=== PATIENT | male | born 1980 ===

== ENCOUNTER 2021-05-27 10:46 | Emergency (ER) | payer MEDICAID, OTHER ==
[~2021-05-27] VITALS: Ht 175.3 cm; Wt 68.0 kg
[2021-05-27] MEDS ORDERED: SODIUM CHLORIDE 0.9% 1,000 ML IV ONE (11:30)
[2021-05-27] MEDS ORDERED: SODIUM CHLORIDE 0.9% 500 ML IVB ONE (11:30)
[2021-05-27] MEDS ORDERED: LORazepam 2MG/ML-1ML VIAL IV ONE (11:30)
[2021-05-27] MEDS ORDERED: LORazepam 2MG/ML-1ML VIAL ONE (11:49)
[2021-05-27] MEDS ORDERED: HALOPERIDOL LACTATE 5 MG/ML INJ VIAL ONE ×2 (11:53)
[2021-05-27 13:09] LABS: Basophils # (auto) 0 10 ^3/uL (0-0.2); Basophils % (auto) 0.4 % (0.0-2.0); Eosinophils # (auto) 0 10 ^3/uL (0-0.8); Eosinophils % (auto) 0.2 % (0.0-7.0); Hematocrit 49.5 % (41.0-53.0); Hemoglobin 16.8 g/dL (13.5-17.5); Lymphocytes # (auto) 0.8 10 ^3/uL (0.4-5.4); Lymphocytes % (auto) 8.7 % (10.0-50.0); Mean Corpuscular Hemoglobin 30.9 pg (28.0-32.0); Mean Corpuscular Hgb Conc. 33.9 g/dL (32.0-36.0); Monocytes # (auto) 0.4 10 ^3/uL (0-1.3); Monocytes % (auto) 3.8 % (0.0-12.0); Neutrophils # (auto) 8.4 10 ^3/uL (1.6-8.6); Neutrophils % (auto) 86.9 % (37.0-80.0); Nucleated Red Blood Cells % 0.1 %; Red Blood Cells 5.44 10^6/uL (4.5-5.90); Red Cell Distribution Width 13.4 % (11.8-14.3); White Blood Cell 9.7 10^3/uL (4.4-10.8)
[2021-05-27 13:26] LABS: Blood Alcohol < 3.0 mg/dL (0-5); Magnesium 2.3 mg/dL (1.6-2.6)
[2021-05-27 13:29] LABS: Albumin 3.5 g/dL (3.4-5.0); BUN/Creatinine Ratio 8.8; Calcium 8.5 mg/dL (8.5-10.1); Potassium 3.5 mmol/L (3.5-5.1)
[2021-05-27 13:32] LABS: Bilirubin, Total 0.5 mg/dL (0.2-1.0); Total Protein 7.2 g/dL (6.4-8.2)
[2021-05-27 16:17] LABS: Urine Bacteria NONE SEEN /hpf (None Seen); Urine Blood Negative /uL (Negative); Urine Hyaline Cast FEW /lpf (0 - 2); Urine Mucus FEW (None Seen); Urine Specific Gravity 1.019 (1.001-1.035); Urine WBC 1 /hpf (0 - 3)
[2021-05-27 16:34] LABS: Amphetamine Screen, Urine NEGATIVE (NEGATIVE); Barbiturate Scree,Urine NEGATIVE (NEGATIVE); Benzodiazephine Screen, Urine POSITIVE (NEGATIVE); Cannabinoid Screen, Urine POSITIVE (NEGATIVE); Cocaine Screen, Urine NEGATIVE (NEGATIVE); Opiate Scree,Urine NEGATIVE (NEGATIVE); Phencyclidine Screen, Urine NEGATIVE (NEGATIVE)
[2021-05-27 17:15] VITALS: BP 112/81
== END 2021-05-27 17:30 | disposition home or self-care (01) ==
LOC: EDBD 10:46 → ER 10:46
DX: G40.909 Epilepsy, unspecified, not intractable, without status epilepticus (principal); F12.10 Cannabis abuse, uncomplicated; R74.8 Abnormal levels of other serum enzymes; I10 Essential (primary) hypertension; R73.9 Hyperglycemia, unspecified
CPT/HCPCS: 36415; 70450; 71045; 80053; 80307; 80320; 81001; 83735; 84443; 85025; 93005; 96361; 96365; 96375; 99285; J1630; J1953; J2060; J7030; J7040; J7060

== ENCOUNTER 2024-06-10 09:08 | Emergency (ER) | payer MEDICAID ==
[~2024-06-10] VITALS: Ht 167.6 cm; Wt 68.1 kg
[2024-06-10] MEDS: levETIRAcetam 1000 mg/100ml 100 ML IV ONE (09:59)
[2024-06-10] MEDS: LORazepam 2MG/ML-1ML VIAL IV ONE (09:59)
[2024-06-10] MEDS: SODIUM CHLORIDE 0.9% 1,000 ML IV ONE (09:59)
[2024-06-10 10:10] LABS: Basophils # (auto) 0.1 10 ^3/uL (0-0.2); Basophils % (auto) 0.7 % (0.0-2.0); Eosinophils # (auto) 0.1 10 ^3/uL (0-0.8); Monocytes # (auto) 0.5 10 ^3/uL (0-1.3); Red Blood Cells 5.73 10^6/uL (4.5-5.90)
[2024-06-10] MEDS: KETOROLAC TROMETH 30 MG/ML 1ML VIAL IV ONE (10:12)
[2024-06-10 10:13] LABS: Eosinophils % (auto) 1.4 % (0.0-7.0); Hematocrit 52.8 % (41.0-53.0); Hemoglobin 18.3 g/dL (13.5-17.5); Lymphocytes # (auto) 2.2 10 ^3/uL (0.4-5.4); Lymphocytes % (auto) 25.3 % (10.0-50.0); Mean Corpuscular Hemoglobin 31.9 pg (28.0-32.0); Mean Corpuscular Hgb Conc. 34.6 g/dL (32.0-36.0); Mean Corpuscular Volume 92.3 fL (80.0-100.0); Monocytes % (auto) 6.3 % (0.0-12.0); Neutrophils # (auto) 5.7 10 ^3/uL (1.6-8.6); Neutrophils % (auto) 66.3 % (37.0-80.0); Nucleated Red Blood Cells % 0.4 %; Platelet Count (auto) 240 10^3/uL (140-450); Red Cell Distribution Width 13.1 % (11.8-14.3); White Blood Cell 8.6 10^3/uL (4.4-10.8)
--- NOTE | 2024-06-10 10:13 | ED.PDOC ---
HPI (NEURO) HPI Comments 44M BIBA w/ prior Hx of a Sz one year ago which might be associated to the c/c of Sz. Pt reports that he did not take his Keppra medication this morning and that his family found him in the bathroom. Pt states that both of his Sz today lasted a "few seconds". PMHx of Chronic Back Pain. SHx of Colon Sx, and Right hand Sx. Social Hx of tobacco and marijuana use but denies alcohol use. Denies chills, fever, N/V/D, SOB, CP or other associated symptom's, modifiers, or recent injuries or sick contact at this time. Chief Complaint: Seizure Time Seen by MD: 09:50 Primary Care Provider: ELVA Reviewed Notes: Nurses Notes, Battery Hand Notes, Medications, Allergies Information Source: Patient Mode of Arrival: EMS Severity: Moderate Dizziness/Weakness Severity: Does not affect activitie Headache Severity: None Timing: Minutes Duration: Since onset, Minutes Prehospital treatment: None Seizure Quality: Mulitple Episodes Seizure Location: Generalized Onset: With light exertion Circumstances: Spontaneous Before: Normal During: Awake After: Normal Mentation History of: Seizure Disorder Associated Signs and Symptoms: None Past Medical History PAST MEDICAL HISTORY: Seizures Past Medical History (Other): Chronic back pain Surgical History (Other): Colon Sx, and Right hand Sx Family History Family History: Reviewed,noncontributory to illness, Unknown Social History Smoker: Cigarettes Alcohol: Denies ETOH Use Drugs: Marijuana Lives In: Home Constitutional: denies: chills, diaphoresis, fatigue, fever, malaise, sweats, weakness, others EENTM: denies: blurred vision, double vision, ear bleeding, ear discharge, ear drainage, ear pain, ear ringing, eye pain, eye redness, hearing loss, mouth pain, mouth swelling, nasal discharge, nose bleeding, nose congestion, nose pain, photophobia, tearing, throat pain, throat swelling, voice changes, others Respiratory: denies: cough, hemoptysis, orthopnea, SOB at rest, shortness of breath, SOB with excertion, stridor, wheezing, others Cardiovascular: denies: chest pain, dizzy spells, diaphoresis, Dyspnea on exertion, edema, irregular heart beat, left arm pain, lightheadedness, palpitations, PND, syncope, others Gastrointestinal: denies: abdomen distended, abdominal pain, blood streaked bowels, constipated, diarrhea, dysphagia, difficulty swallowing, hematemesis, melena, nausea, poor appetite, poor fluid intake, rectal bleeding, rectal pain, vomiting, others Genitourinary: denies: burning, dysuria, flank pain, frequency, hematuria, incontinence, penile discharge, penile sore, pain, testicle pain, testicle swelling, urgency, others Neurological: reports: seizure; denies: dizziness, fainting, headache, left sided numbness, left sided weakness, numbness, paresthesia, pre-existing deficit, right sided numbness, right sided weakness, speech problems, tingling, tremors, weakness, others Musculoskeletal: denies: back pain, gout, joint pain, joint swelling, muscle pain, muscle stiffness, neck pain, others Integumetry: denies: bruises, change in color, change in hair/nails, dryness, laceration, lesions, lumps, rash, wounds, others Allergic/Immunocompromised: denies: Difficulty Healing, Frequent Infections, Hives, Itching, others Hematologic/Lymphatic: denies: anemia, blood clots, easy bleeding, easy bruising, swollen glands, others Endocrine: denies: excessive hunger, excessive sweating, excessive thirst, excessive urination, flushing, intolerance to cold, intolerance to heat, unexplained weight gain, unexplained weight loss, others Psychiatric: denies: anxiety, bipolar disorder, depression, hopeless, panic disorder, schizophrenia, sleepless, suicidal, others All Other Systems: Reviewed and Negative Physical Exam General Appearance: Mild Distress, Moderate Distress, Normal HEENT: Normal ENT Inspection, PERRL/EOMI, Pharynx Normal, TMs Normal Neck: Full Range of Motion, Non-Tender, Normal, Normal Inspection Respiratory: Chest Non-Tender, Lungs Clear, No Accessory Muscle Use, No Res piratory Distress, Normal Breath Sounds Cardiovascular: No Edema, No JVD, No Murmur, No Gallop, Normal Peripheral Pulses, Regular Rate/Rhythm Breast Exam: Deferred Gastrointestinal: No Organomegaly, Non Tender, No Pulsatile Mass, Normal Bowel Sounds, Soft Genitalia: Deferred Pelvic: Deferred Rectal: Deferred Extremities: No calf tenderness, Normal capillary refill, Normal inspection, Normal range of motion, Non-tender, No pedal edema Musculoskeletal : Location: Bilateral Extremity Location: Back Apperance: Normal, Limited ROM, Tenderness: Moderate, Other (Acute exacerbation of back injury from the seizures) Neurologic: Alert, glazier helper II-XII nml as Tested, Depressed Affect, No Motor Deficits, No Sensory Deficits Cerebellar Function: Normal Reflexes: Normal Skin: Dry, Normal Color, Warm Peripheral Pulses: 1+ carotid (R), 1+ carotid (L) Lymphatic: No Adenopathy EKG EKG : Pulse Rate (adult): 82 [place]: LAD Cardiac Rhythm: NSR Hypertrophy: LAE Was a procedure done? Was a procedure done?: No Differential Diagnosis (SZ) Seizure: Anticonvulsant Withdrawl, Hypocalcemia, Hypoglycemia, Hyponatremia, Mass Lesion, Syncope, Epilepsy-Break Through CVA: Electrolyte Imbalance General Weakness: Anemia, Dehydration, Dysrhythmia, Electrolyte imbalance, Hypoglycemia, Hypotension, Hypovolemia Headache: N/A X-Ray, Labs, Meds, VS Vital Signs Date Time Temp Pulse Resp B/P (MAP) Pulse Ox O2 Delivery O2 Flow Rate FiO2 06/10/24 13:43 97.9 85 20 116/67 (83) 97 97.9 06/10/24 10:26 97.5 72 18 118/94 (102) 99 97.5 06/10/24 10:26 72 18 99 Room Air* 0 21 06/10/24 09:13 97.9 113 18 138/77 (97) 95 Lab Test 06/10/24 11:32 06/10/24 09:43 Range/Units Urine Color Light-yellow Yellow Urine Clarity Turbid H Clear Urine pH 5.0 5.0-9.0 Urine Specific [place] 1.024 1.001-1.035 Urine Protein Trace H Negative Urine Ketones Trace Negative Urine Blood Trace H Negative /uL Urine Nitrite Negative Negative Urine Bilirubin Negative Negative Urine Urobilinogen Normal Negative mg/dL Urine Leukocyte Esterase 1+ Negative /uL Urine RBC 1 0 - 3 /hpf Urine Microscopic WBC 4 H 0-3 /HPF Urine Squamous Epithelial Cells Few <5 /hpf Urine Bacteria None seen None Seen /hpf Urine Glucose Normal Normal mg/dL Urine Opiates Screen Neg NEGATIVE Urine Fentanyl Screen Neg NEGATIVE Urine Barbiturates Screen Neg NEGATIVE Urine Phencyclidine Screen Neg NEGATIVE Urine Amphetamines Screen Neg NEGATIVE Urine Benzodiazepines Screen Neg NEGATIVE Urine Cocaine Screen Neg NEGATIVE Urine Cannabinoids Screen Pos NEGATIVE White Blood Count 8.6 4.4-10.8 10^3/uL Red Blood Count 5.73 4.5-5.90 10^6/uL Hemoglobin 18.3 H 13.5-17.5 g/dL Hematocrit 52.8 41.0-53.0 % Mean Corpuscular Volume 92.3 80.0-100.0 fL Mean Corpuscular Hemoglobin 31.9 28.0-32.0 pg Mean Corpuscular Hemoglobin Concent 34.6 32.0-36.0 g/dL Red Cell Distribution Width 13.1 11.8-14.3 % Platelet Count 240 140-450 10^3/uL Mean Platelet Volume 8.3 6.9-10.8 fL Neutrophils (%) (Auto) 66.3 37.0-80.0 % Lymphocytes (%) (Auto) 25.3 10.0-50.0 % Monocytes (%) (Auto) 6.3 0.0-12.0 % Eosinophils (%) (Auto) 1.4 0.0-7.0 % Basophils (%) (Auto) 0.7 0.0-2.0 % Neutrophils # (Auto) 5.7 1.6-8.6 10 ^3/uL Lymphocytes # (Auto) 2.2 0.4-5.4 10 ^3/uL Monocytes # (Auto) 0.5 0-1.3 10 ^3/uL Eosinophils # (Auto) 0.1 0-0.8 10 ^3/uL Basophils # (Auto) 0.1 0-0.2 10 ^3/uL Nucleated Red Blood Cells 0.4 % Sodium Level 139 136-145 mmol/L Potassium Level 4.1 3.5-5.1 mmol/L Chloride Level 108 H 98-107 mmol/L Carbon Dioxide Level 20 20-31 mmol/L Anion Gap 11 5-15 Blood Urea Nitrogen 13 9-23 mg/dL Creatinine 1.09 0.700-1.30 mg/dL Glomerular Filtration Rate Calc 85 >90 mL/min BUN/Creatinine Ratio 11.9 10.0-20.0 Serum Glucose 114 H 74-106 mg/dL Calcium Level 10.1 8.7-10.4 mg/dL Magnesium Level 2.0 1.6-2.6 mg/dL Total Bilirubin 0.9 0.2-1.0 mg/dL Aspartate Amino Transferase (AST) 21 13-40 U/L Alanine Aminotransferase (ALT) 26 7-40 U/L Alkaline Phosphatase 75 46-116 U/L Total Protein 7.7 5.7-8.2 g/dL Albumin 5.0 H 3.2-4.8 g/dL Plasma/Serum Blood Alcohol 3.4 <10 mg/dL Current Medications Medications (Trade) Dose Ordered Sig/Paige Route Start Time Stop Time Status Last Admin Lorazepam (Ativan Inj) 1 mg ONCE ONCE IV 06/10/24 09:30 06/10/24 09:33 DC 06/10/24 09:59 Sodium Chloride 1,000 ml @ 150 mls/hr Q6H40M ONCE IV 06/10/24 09:30 06/10/24 16:09 06/10/24 09:59 Levetiracetam 100 ml @ 400 mls/hr ONCE ONCE IV 06/10/24 09:30 06/10/24 09:44 DC 06/10/24 09:59 Ketorolac Tromethamine (Toradol Injection) 30 mg ONCE ONCE IV 06/10/24 10:15 06/10/24 10:16 DC 06/10/24 10:12 X-Ray, Labs, Meds, VS Comment COURSE IN THE EMERGENCY DEPARTMENT EVENTFUL PATIENT CAME IN BECAUSE OF SEIZURES AND CAME TO THE EMERGENCY DEPARTMENT POSTICTAL STATE HEART RATE 113 BLOOD PRESSURE 138/77 BLOOD SUGAR 160 CHEST X-RAY IS NORMAL EKG SHOWS NORMAL SINUS RHYTHM AT 82 WITH LEFT AXIS DEVIATION AND LEFT ATRIAL ENLARGEMENT CT OF THE HEAD IS NORMAL CBC NORMAL CMP NEGATIVE URINE 1+ LEUKOCYTE ESTERASE UDS POSITIVE FOR MARIJUANA MAGNESIUM 2.0 BLOOD ALCOHOL 3.4 PATIENT WILL BE DISCHARGED HOME TO FOLLOW UP WITH HIS NEUROLOGIST PATIENT AWARE RETIC CAN NOT DRIVE UNTIL HE SEES THE NEUROLOGIST WHO CAN RELEASE HIM Time of 1ST Reevaluation: 10:20 Reevaluation 1ST: Unchanged Time of 2ND Reevaluation: 14:29 Reevaluation 2ND: Improved Consultation: PCP, Neurology Patient Education/Counseling: Diagnosis, Treatment, Prognosis, Need For Follow Up Family Education/Counseling: Diagnosis, Treatment, Prognosis, Need For Follow Up, No Family Present Departure 1 Departure Time of Disposition: 14:39 Impression: Primary Impression: Seizure disorder Additional Impressions: Marijuana user Exacerbation of chronic back pain Disposition: 01 HOME / SELF CARE / HOMELESS Condition: Fair Additional Instructions: LOCAL HEAT HOT SHOWERS AND FOLLOW UP WITH YOUR PCP e-Prescriptions Cyclobenzaprine Hcl (Cyclobenzaprine Hcl) 10 Mg Tab 10 MG PO TID for 10 Days, #30 TAB Prov: HIRA WONG MD 06/10/24 Ibuprofen (Ibuprofen) 600 Mg Tab 1 TAB PO TID for 10 Days, #30 TAB Prov: HIRA WONG MD 06/10/24 Discharged With: Self Critical Care Note Critical Care Time?: No Stability Stability form required: No Heart Score Heart Score: Heart Score Response (Comments) Value History N/A 0 EKG Normal 0 Age 45-64 1 Risk Factors 1 or 2 risk factors 1 Troponin N/A 0 Total 2 I personally scribed for HIRA WONG MD ([email or web address]) on 06/10/24 at 10:13. Electronically submitted by Isaias Santana ([email or web address]). HIRA WONG MD Jun 10, 2024 10:13
[2024-06-10 10:23] LABS: Alanine Aminotransferase 26 U/L (7-40); Alkaline Phosphatase 75 U/L (46-116); Anion Gap 11 (5-15); Aspartate Aminotransferase 21 U/L (13-40); BUN/Creatinine Ratio 11.9 (10.0-20.0); Blood Alcohol 3.4 mg/dL (<10); Blood Urea Nitrogen 13 mg/dL (9-23); Calcium 10.1 mg/dL (8.7-10.4); Carbon Dioxide 20 mmol/L (20-31); Potassium 4.1 mmol/L (3.5-5.1); Sodium 139 mmol/L (136-145)
[2024-06-10 10:24] LABS: Bilirubin, Total 0.9 mg/dL (0.2-1.0); Total Protein 7.7 g/dL (5.7-8.2)
[2024-06-10 10:26] VITALS: PULSE 72; RESP 18; O2SAT 99
[2024-06-10 10:31] LABS: Chloride 108 mmol/L (98-107); Glucose 114 mg/dL (74-106)
--- NOTE | 2024-06-10 10:58 | DVH ---
EXAM: CT HEAD WITHOUT CONTRAST HISTORY: sz COMPARISON: None TECHNIQUE: Axial images were obtained and reformatted in coronal and sagittal planes. All CT scans at this medical facility are performed using dose modulation techniques as appropriate t o a performed exam including the following: Automated exposure control was utilized; adjustment of th e MA and/or KV according to patient size; and use of iterative reconstruction technique. CT Dose: CTDI volume is 56 mGy. Dose-length product is 1334 mGy*cm FINDINGS: Supratentorial Region: No evidence for large acute territorial ischemia. No intracranial hemorrhage is noted. Posterior Fossa: No acute abnormality. Brainstem: Unremarkable. Sellar/Suprasellar Region: Unremarkable. Ventricles, Cisterns, Sulci: Age-appropriate. Orbits: Unremarkable. Paranasal Sinuses: Ethmoid sinus mucosal thickening. Mastoid Air Cells: Unremarkable. Vasculature: Unremarkable. Bones/Soft Tissues: No acute abnormality. Other: None. IMPRESSION: 1. No acute intracranial process. 2. Mild ethmoid sinus mucosal thickening noted.
--- NOTE | 2024-06-10 10:59 | DVH ---
CHEST RADIOGRAPH Indication: SZ Technique: Frontal and lateral view of the chest was obtained Comparison: None FINDINGS: Lines and Tubes: None Lungs: Clear Pleura: No effusion. No pneumothorax. Cardiomediastinal contours: Unremarkable Bones: Unremarkable IMPRESSION: No evidence of acute disease.
[2024-06-10 11:56] LABS: Urine Bacteria None Seen /hpf (None Seen)
[2024-06-10 12:28] LABS: Urine Blood TRACE /uL (Negative); Urine Clarity Turbid (Clear); Urine Color Light-Yellow (Yellow); Urine Protein, UAD TRACE (Negative); Urine Specific Gravity 1.024 (1.001-1.035); Urine Squamous Epithelial Cell FEW /hpf (<5); Urine Urobilinogen Normal (Negative); Urine WBC 4 /HPF (0-3)
[2024-06-10 12:34] LABS: Amphetamine Screen, Urine Neg (NEGATIVE); Barbiturate Scree,Urine Neg (NEGATIVE); Benzodiazephine Screen, Urine Neg (NEGATIVE); Cannabinoid Screen, Urine Pos (NEGATIVE); Cocaine Screen, Urine Neg (NEGATIVE); Opiate Scree,Urine Neg (NEGATIVE); Phencyclidine Screen, Urine Neg (NEGATIVE)
--- NOTE | 2024-06-10 14:02 | ECG ---
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
[2024-06-10] MEDS ORDERED: IBUP-1454 PO (14:41)
[2024-06-10] MEDS ORDERED: CYCL-839 PO (14:41)
[2024-06-10 15:02] VITALS: BP 136/94; PULSE 98; RESP 16; TEMP 98.7; O2SAT 100
== END 2024-06-10 15:06 | disposition home or self-care (01) ==
LOC: EDBD 09:08 → ER 09:08
DX: G40.909 Epilepsy, unspecified, not intractable, without status epilepticus (principal); G89.29 Other chronic pain; M54.50 Low back pain, unspecified; F17.210 Nicotine dependence, cigarettes, uncomplicated; Z79.899 Other long term (current) drug therapy
CPT/HCPCS: 36415; 70450; 71046; 80053; 80307; 80320; 81001; 83735; 85025; 93005; 96365; 96375; 99285; J1885; J1953; J2060